=== PATIENT | female | born 1975 | race Caucasian/White ===

== ENCOUNTER 2019-03-10 23:59 | Emergency (ER) | payer OTHER ==
[~2019-03-10] VITALS: Ht 172.7 cm; Wt 81.6 kg
[2019-03-11 00:25] VITALS: BP_SYST 112
[2019-03-11 01:58] VITALS: BP_SYST 112
== END 2019-03-11 01:58 | disposition home or self-care (01) ==
LOC: SED 23:59
DX: J02.9 Acute pharyngitis, unspecified (principal)
CPT/HCPCS: 36415; 86403; 87081; 99283